=== PATIENT | male | born 1960 | race Caucasian/White ===

== ENCOUNTER 2016-11-27 09:53 | Emergency (ER) | payer BC ==
[~2016-11-27] VITALS: Ht 188 cm; Wt 103.5 kg
[~2016-11-27 09:53] MED LIST: WARF10TA PO; WARF5TAB90 PO
[2016-11-27 09:54] VITALS: TEMP 36.5; Ht 188 cm; Wt 103.5 kg
[2016-11-27] MEDS ORDERED: LIDOCAINE/EPINEPHRINE 1% 20 ML VIAL ONE (10:08)
--- NOTE | 2016-11-27 10:40 | EMERGENCY ROOM VISIT NOTE ---
History Report prepared by Annikaibjerome: Dinora Bob Under the Supervision of: Dr. Son Ricks M.D. First contact with patient: 10:03 Chief Complaint: LACERATION/CUT (SUT/DERMABOND) Stated Complaint: LEFT KNEE LACERATION Nursing Triage Summary: Patient states he was walking the dos and walked on a branch under the snow he didn't see, injured left knee in fall. Denies hitting head. Open wound on knee from tree branch. Takes Coumadin daily. History of Present Illness The patient is a 56 year old male who presents to the Emergency Room with complaints of persistent left knee pain starting a few minutes ago. The patient was walking his dogs when he tripped on a branch and fell down. He reports hitting his knee. He has a laceration on his left knee. He denies hitting his head or loss of consciousness. He denies any other injuries. The patient denies chest pain, shortness of breath, or any other complaints. He is on Coumadin. Source of History: patient Onset: a few minutes ago Position: knee (left) Quality: other (laceration) Timing: other (persistent) Associated Symptoms: No LOC, No SOB, No chest pain Review of Systems See HPI for pertinent positives & negatives. A total of 10 systems reviewed and were otherwise negative. Past Medical & Surgical Medical Problems: (1) H/O blood clots (2) Hypertension Family History Heart disease Hypertension Social History Smoking Status: Former Smoker Alcohol Use: occasionally Marital Status: single Occupation Status: employed Current/Historical Medications Scheduled Warfarin Sodium (Coumadin), 5 MG PO 2XWK Warfarin Sodium (Coumadin), 10 MG PO 5XWK Allergies Coded Allergies: No Known Allergies (Unverified , 11/27/16) Physical Exam Vital Signs Date Time Temp Pulse Resp B/P Pulse Ox O2 Delivery O2 Flow Rate FiO2 11/27/16 11:26 75 16 180/104 96 Room Air 11/27/16 09:54 36.5 80 17 171/108 97 Room Air Physical Exam GENERAL: Patient is a healthy-appearing well-nourished HEAD: Normocephalic atraumatic EYES: Ocular movements intact pupils equal and react to light OROPHARYNX mucous membranes are moist no exudates present no erythema or edema present NECK: Supple no nuchal rigidity CHEST: Good equal expansion LUNGS: Clear and equal to auscultation CARDIAC: Normal S1 and S2 ABDOMEN: Soft nontender no guarding BACK: No CVA tenderness EXTREMITIES: Stellate laceration approximately 6 cm total in length, it is liner. There are no foreign objects. Normal muscle strength in all groups no clubbing cyanosis or edema NEURO: Patient is following commands is answering questions appropriately. Alert and oriented x3 Cranial Nerves 2-12 grossly intact Medical Decision & Procedures Procedure Location: Inferior to the knee Total length: 6 cm Complexity: Simple, linear Verbal consent was obtained after the risks and benefits were explained, including but not limited to bleeding, scarring, infection, pain, and bone/joint /nerve damage. At this time, the risks of the procedure are less than the risks of NOT performing the procedure. A time out was taken and the correct patient and site identified. The skin was prepped with betadine. The target area was anesthetized with 4 ml of 1% lidocaine without epinephrine. Copious irrigation was performed using 500 cc of normal saline. The skin was re-prepped with betadine and a sterile field set. The wound was explored for foreign bodies and none found. Examination revealed no injury to deep structures such as tendons, bone, or significant blood vessels. Debridement was not performed. The wound edges were approximated using 9, 4-0 simple interrupted nylon sutures. Hemostasis and excellent approximation was achieved. Antibacterial ointment and a sterile dressing applied. Detailed wound care instructions and signs and symptoms of infection reviewed with the patient. No complications and the patient tolerated the procedure well. ED Course 1003: Past medical records reviewed. The patient was evaluated in room B03B. A complete history and physical examination was performed. 1115: Upon reexamination the patient is resting comfortably. I discussed results and treatment plan with the patient. He verbalizes agreement and understanding. The patient is ready for discharge. Medical Decision Differential diagnosis: Etiologies such as fracture, dislocation, intra-abdominal, pneumothorax, intrathoracic , intracranial, neurologic, as well as other traumatic pathologies were entertained. This is a 56-year-old male who presents emergency department complaining of laceration. This was repaired by student nurse practitioner as well as myself as above. The patient's tetanus is up-to-date. I feel he is well enough to be discharged home for follow-up with his primary care physician. Patient was in agreement with the treatment plan. Impression Primary Impression: Laceration Scribe Attestation The scribe's documentation has been prepared under my direction and personally reviewed by me in its entirety. I confirm that the note above accurately reflects all work, treatment, procedures, and medical decision making performed by me. Departure Information Dispostion Home / Self-Care Referrals Oliverio White D.O. (PCP) Forms HOME CARE DOCUMENTATION FORM, IMPORTANT VISIT INFORMATION Patient Instructions ED Laceration Ext Sutr Stap Tape, ED Scar Tips to Minimize, My [facility] Additional Instructions Sutures out in 10-14 days You have been examined and treated today on an emergency basis only. This is not a substitute for, or an effort to provide, complete comprehensive medical care. It is impossible to recognize and treat all injuries or illnesses in a single emergency department visit. It is therefore important that you follow up closely with Dr White. Call as soon as possible for an appointment. Thank you for your time and consideration. I look forward to speaking with you again soon. Please don't hesitate to call us if you have any questions.
[2016-11-27] MEDS ORDERED: LIDOCAINE/EPINEPHRINE 1% 20 ML VIAL INFIL STA (10:44)
[2016-11-27 11:26] VITALS: BP 180/104; PULSE 75; O2SAT 96
== END 2016-11-27 11:28 | disposition home or self-care (01) ==
LOC: C.EDB 09:55
DX: S81.012A Laceration without foreign body, left knee, initial encounter (principal); W18.09XA Striking against other object with subsequent fall, initial encounter; I10 Essential (primary) hypertension; Z82.49 Family history of ischemic heart disease and other diseases of the circulatory system; Z87.891 Personal history of nicotine dependence; Z79.01 Long term (current) use of anticoagulants

== ENCOUNTER 2025-04-24 15:52 | Inpatient (IN) ==
[2025-04-24] MEDS: OPTIRAY 320 125ml IV ONE (16:08)
--- NOTE | 2025-04-24 16:25 | Emergency Department Note ---
Impression & Plan Stroke-like symptoms, Hypertension ED Provider Note ED Provider Note NAME: LD ESPINO AGE:65 SEX: Male : 1960 ARRIVES VIA: private vehicle INFORMANT: Patient, friend ED PROVIDER(s): Ava Roberts DO CHIEF COMPLAINT: Strokelike symptoms HPI: This is a 65-year-old male presents emergency department due to concern for right arm weakness and difficulty speaking. Patient states symptoms began at noon. Patient lives at home alone. Friend who also presents to bedside states that he called him at around 315 stating he was not feeling well and the friend came over to pick him up and bring him here. Patient with a prior history of glioblastoma status post resection 3 years ago. Patient follows down at [facility] currently. He states that he did have another surgery last fall and they continue to monitor him with frequent MRIs. Patient denies any use of antiplatelet or anticoagulation medications. Patient states he felt normal this morning when he first woke up, ate and did his normal routine at his house before this started around noon. Patient states he noticed it when he went to use his right arm to try and move a sliding glass door. He states he felt like he did not have normal control or strength in his arm. Patient states he then realized that his speech was off when he called his friend. He states he knows what he wants to say but has difficulty getting it out. Patient denies any difficulty walking or leg weakness. He denies any sense of headaches or dizziness. He states no recent illness or medication changes. PAST MEDICAL HISTORY:See Below PAST SURGICAL HISTORY:See Below FAMILY HISTORY:See Below SOCIAL HISTORY:See Below HOME MEDICATIONS:See Below ALLERGIES:See Below VITALS:See Below PHYSICAL EXAMINATION: GENERAL: alert, well appearing, well nourished, no distress, non-toxic EYE EXAM: normal conjunctiva, PERRL and EOM's grossly intact OROPHARYNX: no exudate, no erythema, lips, buccal mucosa, and tongue normal and mucous membranes are moist NECK: supple, no nuchal rigidity, no adenopathy, non-tender LUNGS: Clear to auscultation. Normal chest wall mechanics, no w/r/r HEART: no murmurs, S1 normal and S2 normal ABDOMEN: abdomen soft, non-tender, normo-active bowel sounds, no masses, no rebound or guarding. BACK: Back is symmetrical on inspection and there is no deformity, no midline tenderness, no CVA tenderness. SKIN: no rashes, petechiae, orbruising UPPER EXTREMITIES: upper extremities are grossly normal. FROM, nml pulses b/l. LOWER EXTREMITIES: No pitting edema. FROM, nml pulses b/l. NEURO EXAM: Normal sensorium, cranial nerves II-XII grossly intact, slurred speech, no facial droop,nogross weakness of arms, no gross weakness of legs. Gross sensation intact. Right arm ataxia and increased fatiguability. NIHSS 3. Vital Signs: reviewed and remarkable Differential Diagnosis: ischemic Stroke, hemorrhagic stroke, bells palsy, mass, neoplasm, migraine headache, seizure, subarachnoid hemorrhage, TIA, transient global amnesia, medication ADR, as well as others were considered MEDICAL DECISION MAKING: This is a 65-year-old male presents emergency department with slurred speech and right arm weakness. Patient made a stroke alert from triage due to his symptoms and sent urgently for CT. I did speak with a friend who presented to bedside while patient was in CT who picked him up and brought him here and noted slurred speech and difficulty using his right arm. Friend also said he seemed to have slight problem yesterday when they were golfing placing his ball on the aminata with his right hand. Upon arrival to the room labs drawn and sent, additional IV established, EKG and chest ray performed and patient monitored on telemetry. He was started on gentle IV fluid hydration while awaiting callback from neurology. Patient given multiple doses of IV labetalol due to elevated blood pressure reading while here additionally. Case discussed with on-call [place] telestroke neurologist, Dr. Rosas. Given low NIH score, prior history of glioblastoma with surgery, and by the time of their return call patient beyond the 4 and half hour window, felt patient not a candidate for TNK. Based on symptoms patient unlikely to have LVO and would not be a candidate for interventional procedure per Dr. Rosas. I did discuss the case with the reading radiologist additionally who felt the changes noted in her CT reads are likely related to the patient's prior glioblastoma surgery. Patient initially discussed with Dr. Marion of [facility] team who will hold off on formal admission until MRI brain results. After MRI brain performed patient return the emergency department I spoke with Dr. Marion again who felt patient needed further neurosurgical evaluation. We did request neurosurgery at [facility] and were connected with neurology who reviewed all the scans and stated no need for urgent operative intervention. Caldwell findings on MRI likely secondary to recurrence of his tumor and the patient should be started on Decadron and Keppra and close follow-up arranged with his medical team at [facility]. With assistance from the patient we were able to track down a covering PA-C with his medical team at [facility]. I did read her the MRI results, we discussed the presentation of today, discussed evaluation here, as well as the recommendation of the prior neurologist at [facility]. She felt these were reasonable recommendations and that the MRI today would be better compared to an MRI following his repeat surgery from last fall as it was previously compared to an MRI from last May prior to the surgery. She agrees with restarting Decadron and Keppra. She states he does have an appointment with them this and they will follow him up as an outpatient should he remain stable. She does feel observation overnight and improved blood pressure control is important additionally. This was also recommended by the neurologist I spoke with. Case discussed them with Dr. Nolasco, [facility] neurosurgery physician for further inpatient evaluation and management. Patient updated at bedside multiple times and reexamined. He had no other new or evolving symptoms or new complaints. He was given additional IV hydralazine for blood pressure control after the IV labetalol doses. Consultation(s): 1630: Discussed with Dr. Rosas. States not a TNK candidate or a candidate for other intervention. Recommends initiation of low-dose aspirin and Plavix 300 mg and admission for further stroke evaluation. 1638: Discussed with radiology, Dr. Medrano. States changes likely related to prior glioblastoma and surgery. 171: Discussed with Dr. Shetty. He will order MRI brain stat. If reassuring, will admit here. 1919: Discussed with Dr. Shetty again. Recommends neurosurgical evaluation. 2038: [place] [facility] [place]commends 1 g Keppra IV, 10 mg of Decadron IV, and admission for monitoring and improved blood pressure control. Recommend systolic blood pressure should be 130s and 140s. Recommends patient discontinue driving. She states an EEG could be obtained if possible. She states patient can be discharged on Decadron 4 mg 3 times daily. Recommends additional discussion with team at [facility] regarding Keppra dosing and close follow-up. 2109: Discussed with Radha Anaya PA-C at [facility]. Agrees with 10 mg of IV Decadron and 1 g of IV Keppra at this time. Would continue the patient on 4 mg of Decadron every 6 while admitted and then discharge him home on either 4 mg twice daily or daily depending on his symptoms. Will transition the patient to Keppra 500 mg twice daily at time of discharge as well. If possible could consider obtaining an EEG. They are happy to see the patient in follow-up this week as an outpatient. ER Treatment Provided: See below 1640: Discussed with patient again, updated on plan/recommendations. 1653: Patient states he no longer takes any Keppra. He is not currently take any blood pressure medications although notes his blood pressures when he has been checking them at home have been elevated recently. Diagnostics Interpreted By Me: -ECG: Normal sinus at 67, normal axis, normal intervals, no acute ST/T wave changes -Cardiac Monitoring: An order was placed for continuous cardiac monitoring. The monitor shows a rate of 65 with normal sinus rhythm. -Laboratory studies: As stated above and show below. -Imaging studies: Triage Nursing Note Reviewed Prior/Outside Records Reviewed -prior discharge summary from [facility] from July 2022 reviewed Critical Care: Critical care of 78 min performed to assess and manage high likelihood of life-threatening strokelike symptoms and hypertension, involving labs and imaging performed with assessment to evaluate strokelike symptoms and hypertension diagnosis with frequent reassessment. This time includes bedside time, treatment discussions with patient/family/consultants, documentation time and excludes procedure time. Past Med/Surg History Problem List (Updated 04/24/25 @ 16:44 by Ava Roberts DO) Stroke-like symptoms (Acute) Hypertension (Acute) Neurological deficit present (Acute) Brain mass (Acute) Encounter for pre-operative examination Hypertension (Chronic) Medical History Hx of blood clots IN KNEE AREA AND WAS ON THINNER AND NO LONGER NEEDED Hypertension Surgical History (Updated 07/04/22 @ 16:52 by Rosy Garcia PA-C) H/O inguinal hernia repair Hx of colonoscopy Family History (Updated 07/04/22 @ 16:52 by Rosy Garcia PA-C) Mother Cancer lung Kidney disease Father Coronary heart disease Heart disease Hypertension Social History (Updated 07/04/22 @ 17:31 by Rosy Garcia PA-C) Smoking Status: Never smoker Second Hand Exposure: No; Do You Dip or Chew Tobacco: No; Hx Alcohol Use: Yes Hx Substance Use: Yes Non-Prescribed Medications: Marijuana Preferred Language: Northern Irish Communication Ability: Effective Food Sanitarian Required: No Beliefs That Will Affect Care: None Current Living Situation: Alone current occupational status: employed Feels Safe at Home: Yes Assistive Devices: Glasses Allergies Allergies Allergy/AdvReac Type Severity Reaction Status Date / Time No Known Allergies Allergy Verified 04/24/25 16:21 Home Meds Home Medications Medication Instructions Recorded Confirmed ibuprofen 200 mg tablet 400 mg PO ONCE 04/24/25 04/24/25 Results & Data (ED) Vital Signs Vital Signs - 24 hr 04/24/25 15:53 04/24/25 16:22 04/24/25 16:26 Temperature 36.8 C Temperature Source Temporal Artery Scan Pulse Rate 69 73 Pulse Rate [Apical] 67 Respiratory Rate 18 14 Respiratory Effort / Characteristics Respiratory Depth Respiratory Pattern Blood Pressure 127/100 Blood Pressure [Right Arm] 195/107 H Blood Pressure Mean 109 Blood Pressure Mean [Right Arm] 136 Pulse Oximetry 97 97 Oxygen Delivery Method Room Air Room Air Sepsis Recent Fever Within 48 Hours No Sepsis New/Unexplained Change in Mental Status N/A Sepsis Action Taken by Nursing No Action Required 04/24/25 16:30 04/24/25 16:44 04/24/25 16:45 Temperature Temperature Source Pulse Rate 67 62 Pulse Rate [Apical] 62 Respiratory Rate 16 Respiratory Effort / Characteristics Respiratory Depth Respiratory Pattern Blood Pressure 213/112 H 182/91 H Blood Pressure [Right Arm] 186/116 H Blood Pressure Mean Blood Pressure Mean [Right Arm] 139 Pulse Oximetry 99 Oxygen Delivery Method Room Air Sepsis Recent Fever Within 48 Hours Sepsis New/Unexplained Change in Mental Status Sepsis Action Taken by Nursing 04/24/25 16:50 04/24/25 17:05 04/24/25 17:06 Temperature Temperature Source Pulse Rate 63 57 L Pulse Rate [Apical] 57 L Respiratory Rate 15 Respiratory Effort / Characteristics Respiratory Depth Respiratory Pattern Blood Pressure 182/91 H 186/101 H Blood Pressure [Right Arm] 186/101 H Blood Pressure Mean Blood Pressure Mean [Right Arm] 129 Pulse Oximetry 98 Oxygen Delivery Method Room Air Sepsis Recent Fever Within 48 Hours Sepsis New/Unexplained Change in Mental Status Sepsis Action Taken by Nursing 04/24/25 17:15 04/24/25 18:10 04/24/25 19:57 Temperature Temperature Source Pulse Rate Pulse Rate [Apical] 61 58 L 64 Respiratory Rate 16 17 18 Respiratory Effort / Characteristics Respiratory Depth Respiratory Pattern Blood Pressure Blood Pressure [Right Arm] 182/104 H 192/111 H 188/112 H Blood Pressure Mean Blood Pressure Mean [Right Arm] 130 138 137 Pulse Oximetry 98 98 20 L Oxygen Delivery Method Room Air Room Air Sepsis Recent Fever Within 48 Hours Sepsis New/Unexplained Change in Mental Status Sepsis Action Taken by Nursing 04/24/25 21:00 04/24/25 22:00 04/24/25 23:54 Temperature Temperature Source Pulse Rate Pulse Rate [Apical] 61 71 60 Respiratory Rate 20 18 17 Respiratory Effort / Characteristics Non-Labored Spontaneous Respiratory Depth Normal Respiratory Pattern Regular Blood Pressure Blood Pressure [Right Arm] 159/93 H 167/105 H 186/100 H Blood Pressure Mean Blood Pressure Mean [Right Arm] 115 125 128 Pulse Oximetry 96 95 98 Oxygen Delivery Method Room Air Room Air Room Air Sepsis Recent Fever Within 48 Hours Sepsis New/Unexplained Change in Mental Status Sepsis Action Taken by Nursing Laboratory Data 04/24/25 16:12 04/24/25 22:23 Lab Results 04/24/25 04/24/25 04/24/25 Range/Units 16:11 16:12 16:14 WBC 5.63 (4.8-10.8) K/ul RBC 3.69 L (4.70-6.10) M/uL Hgb 11.7 L (14.0-18.0) g/dl Hct 34.1 L (42.0-52.0) % MCV 92.4 (80.0-100.0) fL MCH 31.7 (25.0-34.0) pg MCHC 34.3 (32.0-36.0) g/dL RDW Std Deviation 42.1 (36.4-46.3) fL RDW Coeff of Kristin 12.3 (11.5-14.5) % Plt Count 202 (130-400) K/uL MPV 9.5 (9.4-12.4) fL Immature Gran % (Auto) 0.4 % Neut % (Auto) 73.9 % Lymph % (Auto) 14.0 % [place] % (Auto) 11.0 % Eos % (Auto) 0.2 % Baso % (Auto) 0.5 % Reticulocyte % (Auto) (0.50-2.00) % Neut # (Auto) 4.16 (1.40-6.50) K/uL Lymph # (Auto) 0.79 L (1.20-3.40) K/uL [place] # (Auto) 0.62 H (0.11-0.59) K/uL Eos # (Auto) 0.01 (0.00-0.50) K/uL Baso # (Auto) 0.03 (0.00-0.20) K/uL Reticulocyte # (0.020-0.100) 10^6/uL Immature Gran # (Auto) 0.02 (0.01-0.20) K/uL PT 10.9 (9.0-12.0) Seconds INR 1.0 (0.9-1.1) APTT 31 (21-31) Seconds PTT Ratio 1.2 Sodium 128 L (136-145) mmol/L Potassium 3.6 (3.5-5.1) mmol/L Chloride 96 L (98-107) mmol/L Carbon Dioxide 24 (21-32) mmol/L Anion Gap 8 (3-11) BUN 9 (6-23) mg/dl Creatinine 0.67 (0.6-1.4) mg/dl Est Cr Clr Drug Dosing 124.4 ml/min eGFR 102.34 BUN/Creatinine Ratio 13.4 (10-20) Glucose 108 H (70-99(Fasting)) mg/dl POC Glucose 118 H (70-99) mg/dl Osmolality 279 L (280-300) mOsm/kg Calcium 8.3 L (8.6-10.3) mg/dl Magnesium 1.7 (1.7-2.4) mg/dl Iron (35-175) mcg/dl Transferrin (200-360) mg/dl Ferritin (8-388) ng/ml Total Bilirubin 0.9 (0.2-1.0) mg/dl AST 14 (13-39) U/L ALT 9 (7-52) U/L Alkaline Phosphatase 23 L (34-104) U/L Troponin I High Sens 6.6 (0-20) pg/ml Total Protein 5.8 L (6.0-8.3) gm/dl Albumin 3.7 (3.4-5.0) gm/dl Globulin 2.1 L (2.5-4.0) gm/dl Albumin/Globulin Ratio 1.8 (0.9-2) Vitamin B12 (180-914) pg/ml Folate (>5.38) ng/ml TSH (0.300-4.500) uIu/ml Ethyl Alcohol mg/dL (<10.0) mg/dl Blood Type AB Positive Antibody Screen NEGATIVE 04/24/25 04/24/25 Range/Units 21:48 22:23 WBC (4.8-10.8) K/ul RBC (4.70-6.10) M/uL Hgb (14.0-18.0) g/dl Hct (42.0-52.0) % MCV (80.0-100.0) fL MCH (25.0-34.0) pg MCHC (32.0-36.0) g/dL RDW Std Deviation (36.4-46.3) fL RDW Coeff of Kristin (11.5-14.5) % Plt Count (130-400) K/uL MPV (9.4-12.4) fL Immature Gran % (Auto) % Neut % (Auto) % Lymph % (Auto) % [place] % (Auto) % Eos % (Auto) % Baso % (Auto) % Reticulocyte % (Auto) 2.06 H (0.50-2.00) % Neut # (Auto) (1.40-6.50) K/uL Lymph # (Auto) (1.20-3.40) K/uL [place] # (Auto) (0.11-0.59) K/uL Eos # (Auto) (0.00-0.50) K/uL Baso # (Auto) (0.00-0.20) K/uL Reticulocyte # 0.080 (0.020-0.100) 10^6/uL Immature Gran # (Auto) (0.01-0.20) K/uL PT (9.0-12.0) Seconds INR (0.9-1.1) APTT (21-31) Seconds PTT Ratio Sodium 133 L (136-145) mmol/L Potassium (3.5-5.1) mmol/L Chloride (98-107) mmol/L Carbon Dioxide (21-32) mmol/L Anion Gap (3-11) BUN (6-23) mg/dl Creatinine (0.6-1.4) mg/dl Est Cr Clr Drug Dosing ml/min eGFR BUN/Creatinine Ratio (10-20) Glucose (70-99(Fasting)) mg/dl POC Glucose (70-99) mg/dl Osmolality (280-300) mOsm/kg Calcium (8.6-10.3) mg/dl Magnesium (1.7-2.4) mg/dl Iron 93 (35-175) mcg/dl Transferrin 192 L (200-360) mg/dl Ferritin 178.5 (8-388) ng/ml Total Bilirubin (0.2-1.0) mg/dl AST (13-39) U/L ALT (7-52) U/L Alkaline Phosphatase (34-104) U/L Troponin I High Sens (0-20) pg/ml Total Protein (6.0-8.3) gm/dl Albumin (3.4-5.0) gm/dl Globulin (2.5-4.0) gm/dl Albumin/Globulin Ratio (0.9-2) Vitamin B12 336 (180-914) pg/ml Folate > 22.30 (>5.38) ng/ml TSH 1.330 (0.300-4.500) uIu/ml Ethyl Alcohol mg/dL < 10.0 (<10.0) mg/dl Blood Type Antibody Screen Administered Medications Folic Acid (Folic Acid 1 Mg Tab) 1 mg PO QAM ON LICENSE OF [facility] Stop: 05/24/25 22:54 Last Admin: 04/24/25 23:49 Dose: 1 mg Documented By: DL Magnesium Sulfate/Dextrose (Magnesium Sulfate / D5w) 1 gm in 100 mls @ 50 mls/hr IV Q2H ON LICENSE OF [facility] Stop: 04/25/25 01:44 Last Admin: 04/24/25 21:55 Dose: 50 mls/hr Documented By: Multivitamins (Multivitamin Tab) 1 tab PO QAM ON LICENSE OF [facility] Stop: 05/24/25 22:54 Last Admin: 04/24/25 23:49 Dose: 1 tab Documented By: JB Discontinued Medications Aspirin (Aspirin 81 Mg Ectab) 81 mg PO NOW STA Stop: 04/24/25 16:43 Last Admin: 04/24/25 16:50 Dose: 81 mg Documented By: REKHA Dexamethasone Sodium Phosphate (DexamethasonePf 10 Mg/Ml Vial) 10 mg IV NOW ONE Stop: 04/24/25 20:08 Last Admin: 04/24/25 20:14 Dose: 10 mg Documented By: MAXIM Gabapentin (Gabapentin 600 Mg Tab) 1,200 mg PO NOW ONE Stop: 04/24/25 22:55 Last Admin: 04/24/25 23:49 Dose: 1,200 mg Documented By: JB Gadobutrol (Gadobutrol 65ml Vial) 8.5 ml IV ONCE ONE Stop: 04/24/25 17:53 Last Admin: 04/24/25 17:53 Dose: 8.5 ml Documented By: LUCIANA Hydralazine HCl (Hydralazine Hcl 20 Mg/Ml Vial) 10 mg IV NOW STA Stop: 04/24/25 19:42 Last Admin: 04/24/25 19:56 Dose: 10 mg Documented By: MAXIM Sodium Chloride (Nss) 1,000 mls @ 125 mls/hr IV .Q8H RADHA Stop: 04/27/25 15:59 Last Infusion: 04/24/25 22:45 Dose: Infused Documented By: Infusion: 04/24/25 17:38 Dose: 0 mls/hr Documented By: Admin: 04/24/25 16:28 Dose: 125 mls/hr Documented By: REKHA Sodium Chloride (Nss) 1,000 mls @ 60 mls/hr IV .[id number] ONE Stop: 04/25/25 14:16 Last Admin: 04/24/25 21:53 Dose: Not Given Documented By: MAXIM Thiamine HCl 100 mg/ Syringe 10 mls @ 2 mls/min IV NOW STA Stop: 04/24/25 21:56 Last Admin: 04/24/25 22:22 Dose: 2 mls/min Documented By: MAXIM Ioversol (Optiray 320 125ml) 119 ml IV ONCE ONE Stop: 04/24/25 16:09 Last Admin: 04/24/25 16:08 Dose: 119 ml Documented By: HANY Labetalol HCl (Labetalol Hcl Iv 5 Mg/Ml 20ml) 5 mg IV NOW STA Stop: 04/24/25 16:28 Last Admin: 04/24/25 16:30 Dose: 5 mg Documented By: REKHA Labetalol HCl (Labetalol Hcl Iv 5 Mg/Ml 20ml) 10 mg IV NOW STA Stop: 04/24/25 16:42 Last Admin: 04/24/25 16:50 Dose: 10 mg Documented By: REKHA Levetiracetam (Levetiracetam 500 Mg/5 Ml Vial) 1,000 mg IV NOW STA Stop: 04/24/25 20:08 Last Admin: 04/24/25 20:14 Dose: 1,000 mg Documented By: MAXIM Imaging Data Radiologist's Impression: Chest X-Ray 04/24/25 15:59 Chest radiograph, one view History: stroke. Comparison: July 04, 2022. Findings: Calcified atherosclerotic changes of the thoracic aorta. Cardiomediastinal silhouette is within normal limits. Pulmonary vasculature is within normal limits. Lungs are clear. Impression: Stable exam. No acute process. Electronically signed by Casey Rose 04-24-2025 6:[address] 04/24/25 15:59 EXAM: CT Head Without Intravenous Contrast INDICATION: Right facial droop. TECHNIQUE: Axial computed tomography images of the head/brain without intravenous contrast. Sagittal and/or coronal reformats are provided. Sagittal and coronal reformatted images were created and reviewed. This CT exam was performed using one or more of the following dose reduction techniques: automated exposure control, adjustment of the mA and/or kV according to patient size, and/or use of iterative reconstruction technique. COMPARISON: MRI 05/25/2024 FINDINGS: Limitations: None. Brain and extra-axial spaces: There is a moderate to large area of left posterior frontal parietal edema. Small foci of postoperative calcification noted in the left posterior parietal lobe. No regional mass effect. No shift. No hemorrhage. Bones/joints: Left parietal craniotomy change. No acute osseous abnormality. Soft tissues: No significant abnormality noted. Vasculature: No acute abnormality noted. Sinuses: Visualized portion of the left maxillary sinus is opacified. Mastoid air cells: No mastoid effusion. Orbits: No significant abnormality noted. IMPRESSION: Left posterior frontal parietal vasogenic edema without regional mass effect, shift or hemorrhage. Correlate with surgical history. ACT 112: N/A Electronically signed by Jose Zehra 04-24-2025 4:25 PM Head CTA 04/24/25 15:59 EXAM: CT Angiography Head and Neck With Intravenous Contrast INDICATION: Right facial droop. TECHNIQUE: [place] [facility] [place]/head and neck CT angiography protocol performed with intravenous contrast. Sagittal and coronal reformatted images were created and reviewed. This CT exam was performed using one or more of the following dose reduction techniques: automated exposure control, adjustment of the mA and/or kV according to patient size, and/or use of iterative reconstruction technique. MIP reconstructed images were created and reviewed. CONTRAST: 119ml of Optiray 320 was administered intravenously. COMPARISON: None. FINDINGS: HEAD: Right anterior cerebral artery: No abnormality noted. No occlusion or significant stenosis. Anterior communicating artery is present. No aneurysm. Right middle cerebral artery: No abnormality noted. No occlusion or significant stenosis. No aneurysm. Right posterior cerebral artery: No abnormality noted. No occlusion or significant stenosis. No aneurysm. Right intracranial internal carotid artery: Mild calcific plaque noted. No significant stenosis. No dissection or occlusion. Right intracranial vertebral artery: No abnormality noted. No significant stenosis. No dissection or occlusion. Left anterior cerebral artery: No abnormality noted. No occlusion or significant stenosis. No aneurysm. Left middle cerebral artery: M1 patent. There is diminished flow in the anterior left M2 branch without occlusion. No aneurysm. Left posterior cerebral artery: No abnormality noted. No occlusion or significant stenosis. No aneurysm. Left intracranial internal carotid artery: Mild calcific plaque noted. No significant stenosis. No dissection or occlusion. Left intracranial vertebral artery: Small focus of calcific plaque noted. No significant stenosis. No dissection or occlusion. Basilar artery: No abnormality noted. No occlusion or significant stenosis. No aneurysm. Other vasculature: No vascular malformation. Sinuses: There is chronic opacification of the left maxillary sinus. There is mild mucosal thickening left sphenoid sinus. NECK: Right common carotid artery: No abnormality noted. No significant stenosis. No dissection or occlusion. Right extracranial internal carotid artery: Mild proximal calcific plaque. No significant stenosis. No dissection or occlusion. Right external carotid artery: No abnormality noted. No occlusion. Right extracranial vertebral artery: No abnormality noted. No significant stenosis. No dissection or occlusion. Left common carotid artery: No abnormality noted. No significant stenosis. No dissection or occlusion. Left extracranial internal carotid artery: Mild proximal calcific plaque noted. No significant stenosis. No dissection or occlusion. Left external carotid artery: No abnormality noted. No occlusion. Left extracranial vertebral artery: No abnormality noted. No significant stenosis. No dissection or occlusion. Thyroid: 9 mm diameter and calcified left thyroid nodule. No further assessment required. Lung apices: No significant abnormality noted. HEAD and NECK: Bones/joints: There is moderate edema in the left posterior frontal parietal lobe lobes. There is mild heterogeneous asymmetric enhancement of the left parietal cortex subjacent to the parietal craniotomy. Soft tissues: No abnormality noted. CAROTID STENOSIS REFERENCE USING NASCET CRITERIA: % ICA stenosis = (1 - narrowest ICA diameter/diameter of distal cervical ICA) x 100. Mild - <50% stenosis. Moderate - 50-69% stenosis. Severe - 70-94% stenosis. Near occlusion - 95-99% stenosis. Occluded - 100% stenosis. IMPRESSION: 1. There is diminished flow in the anterior left M2 branch without occlusion. 2. No large vessel occlusion or dissection in the head or neck. 3. Left posterior frontal parietal vasogenic edema with heterogeneous underlying gyral enhancement. Cerebritis and developing abscess considered. Residual mass if there has been a recent resection is also considered. ACT 112: N/A Electronically signed by Zehra Garcia 04-24-2025 4:32 PM Neck CTA 04/24/25 15:59 EXAM: CT Angiography Head and Neck With Intravenous Contrast INDICATION: Right facial droop. TECHNIQUE: [place] [facility] [place]/head and neck CT angiography protocol performed with intravenous contrast. Sagittal and coronal reformatted images were created and reviewed. This CT exam was performed using one or more of the following dose reduction techniques: automated exposure control, adjustment of the mA and/or kV according to patient size, and/or use of iterative reconstruction technique. MIP reconstructed images were created and reviewed. CONTRAST: 119ml of Optiray 320 was administered intravenously. COMPARISON: None. FINDINGS: HEAD: Right anterior cerebral artery: No abnormality noted. No occlusion or significant stenosis. Anterior communicating artery is present. No aneurysm. Right middle cerebral artery: No abnormality noted. No occlusion or significant stenosis. No aneurysm. Right posterior cerebral artery: No abnormality noted. No occlusion or significant stenosis. No aneurysm. Right intracranial internal carotid artery: Mild calcific plaque noted. No significant stenosis. No dissection or occlusion. Right intracranial vertebral artery: No abnormality noted. No significant stenosis. No dissection or occlusion. Left anterior cerebral artery: No abnormality noted. No occlusion or significant stenosis. No aneurysm. Left middle cerebral artery: M1 patent. There is diminished flow in the anterior left M2 branch without occlusion. No aneurysm. Left posterior cerebral artery: No abnormality noted. No occlusion or significant stenosis. No aneurysm. Left intracranial internal carotid artery: Mild calcific plaque noted. No significant stenosis. No dissection or occlusion. Left intracranial vertebral artery: Small focus of calcific plaque noted. No significant stenosis. No dissection or occlusion. Basilar artery: No abnormality noted. No occlusion or significant stenosis. No aneurysm. Other vasculature: No vascular malformation. Sinuses: There is chronic opacification of the left maxillary sinus. There is mild mucosal thickening left sphenoid sinus. NECK: Right common carotid artery: No abnormality noted. No significant stenosis. No dissection or occlusion. Right extracranial internal carotid artery: Mild proximal calcific plaque. No significant stenosis. No dissection or occlusion. Right external carotid artery: No abnormality noted. No occlusion. Right extracranial vertebral artery: No abnormality noted. No significant stenosis. No dissection or occlusion. Left common carotid artery: No abnormality noted. No significant stenosis. No dissection or occlusion. Left extracranial internal carotid artery: Mild proximal calcific plaque noted. No significant stenosis. No dissection or occlusion. Left external carotid artery: No abnormality noted. No occlusion. Left extracranial vertebral artery: No abnormality noted. No significant stenosis. No dissection or occlusion. Thyroid: 9 mm diameter and calcified left thyroid nodule. No further assessment required. Lung apices: No significant abnormality noted. HEAD and NECK: Bones/joints: There is moderate edema in the left posterior frontal parietal lobe lobes. There is mild heterogeneous asymmetric enhancement of the left parietal cortex subjacent to the parietal craniotomy. Soft tissues: No abnormality noted. CAROTID STENOSIS REFERENCE USING NASCET CRITERIA: % ICA stenosis = (1 - narrowest ICA diameter/diameter of distal cervical ICA) x 100. Mild - <50% stenosis. Moderate - 50-69% stenosis. Severe - 70-94% stenosis. Near occlusion - 95-99% stenosis. Occluded - 100% stenosis. IMPRESSION: 1. There is diminished flow in the anterior left M2 branch without occlusion. 2. No large vessel occlusion or dissection in the head or neck. 3. Left posterior frontal parietal vasogenic edema with heterogeneous underlying gyral enhancement. Cerebritis and developing abscess considered. Residual mass if there has been a recent resection is also considered. ACT 112: N/A Electronically signed by Zehra Garcia 04-24-2025 4:32 PM Brain MRI 04/24/25 17:10 Exam: MR brain without and with intravenous contrast. History: Difficulty speaking. Right arm weakness. Comparison: Correlation CTA head and neck and noncontrast head CT earlier same day and comparison to prior MR May 25, 2024. Technique: Routine multiplanar multisequence MR images of the brain without and with intravenous contrast were obtained and reviewed. Findings: Diffusion weighted series demonstrates no restricted diffusion. Brain parenchyma demonstrates postintervention changes of the left parietal lobe with serpiginous elements of increased T1 and susceptibility at the level of the surgical bed. This may represent petechial hemorrhage and or laminar necrosis. No discrete mass effect. Overlying craniotomy changes are noted. Remaining brain parenchyma demonstrates normal signal intensity for patient's age. Normal ventricles and sulci for patient's age. Major vascular flow voids are present. Basal cisterns are patent. Empty sella is noted. This is of unlikely clinical significance. No midline shift. Postcontrast images demonstrate significantly increased poorly defined somewhat serpiginous enhancement of the left parietal lobe at the above-described intervention when compared to prior study. No additional abnormal enhancement is noted. Intraorbital soft tissues are within normal limits. Left parietal craniotomy changes appear to be uncomplicated. Impression: Increased region of serpiginous what appears to be cortical enhancement of the left parietal lobe when compared to prior exam. Elements of petechial hemorrhage at this level not excluded. Associated increased adjacent white matter edema. Findings worrisome for neoplastic disease. Edematous changes may represent a neoplastic infiltrative process. Infectious or inflammatory processes cannot entirely be excluded in the appropriate clinical setting. Please see above for details. Electronically signed by Casey Rose 04-24-2025 7:15 PM Discharge Plan Visit Data Chief Complaint: TIA Symptoms Stated Complaint: TIA SYMPTOMS ED Provider: Ava Roberts Discharge Problem: Stroke-like symptoms, Hypertension Patient Disposition: Being Evaluated by Hospitalist Condition: Fair Forms Stand Alone Forms: My [facility] Prescriptions Prescriptions: No Action ibuprofen 200 mg Tablet 400 mg PO ONCE Referrals Referrals: PCP,NO [Primary Care Provider] -
[2025-04-24 16:28] LABS: Basophils # (auto) 0.03 K/uL (0.00-0.20); Basophils % (auto) 0.5 %; Eosinophils # (auto) 0.01 K/uL (0.00-0.50); Eosinophils % (auto) 0.2 %; Hematocrit (blood only) 34.1 % (42.0-52.0); Hemoglobin 11.7 g/dl (14.0-18.0); Immature Granulocytes # (auto) 0.02 K/uL (0.01-0.20); Immature Granulocytes % (auto) 0.4 %; Lymphocytes # (auto) 0.79 K/uL (1.20-3.40); Mean Corpuscular Hemoglobin 31.7 pg (25.0-34.0); Mean Corpuscular Hgb Conc 34.3 g/dL (32.0-36.0); Mean Corpuscular Volume 92.4 fL (80.0-100.0); Mean Platelet Volume 9.5 fL (9.4-12.4); Monocytes # (auto) 0.62 K/uL (0.11-0.59); Neutrophils # (auto) 4.16 K/uL (1.40-6.50); Neutrophils % (auto) 73.9 %; Platelet Count 202 K/uL (130-400); RDW Coefficient of Variation 12.3 % (11.5-14.5); RDW Standard Deviation 42.1 fL (36.4-46.3); Red Blood Count 3.69 M/uL (4.70-6.10); White Blood Count 5.63 K/ul (4.8-10.8)
[2025-04-24] MEDS: SODIUM CHLORIDE 0.9% 1,000 ML IV SCH (16:28)
[2025-04-24] MEDS: LABETALOL HCL IV 5 MG/ML 20ML IV STA ×2 (16:30→16:50)
--- NOTE | 2025-04-24 16:38 | CT Scan Report ---
EXAM: CT Angiography Head and Neck With Intravenous Contrast INDICATION: Right facial droop. TECHNIQUE: [place] [facility] [place]/head and neck CT angiography protocol performed with intravenous contrast. Sagittal and coronal reformatted images were created and reviewed. This CT exam was performed using one or more of the following dose reduction techniques: automated exposure control, adjustment of the mA and/or kV according to patient size, and/or use of iterative reconstruction technique. MIP reconstructed images were created and reviewed. CONTRAST: 119ml of Optiray 320 was administered intravenously. COMPARISON: None. FINDINGS: HEAD: Right anterior cerebral artery: No abnormality noted. No occlusion or significant stenosis. Anterior communicating artery is present. No aneurysm. Right middle cerebral artery: No abnormality noted. No occlusion or significant stenosis. No aneurysm. Right posterior cerebral artery: No abnormality noted. No occlusion or significant stenosis. No aneurysm. Right intracranial internal carotid artery: Mild calcific plaque noted. No significant stenosis. No dissection or occlusion. Right intracranial vertebral artery: No abnormality noted. No significant stenosis. No dissection or occlusion. Left anterior cerebral artery: No abnormality noted. No occlusion or significant stenosis. No aneurysm. Left middle cerebral artery: M1 patent. There is diminished flow in the anterior left M2 branch without occlusion. No aneurysm. Left posterior cerebral artery: No abnormality noted. No occlusion or significant stenosis. No aneurysm. Left intracranial internal carotid artery: Mild calcific plaque noted. No significant stenosis. No dissection or occlusion. Left intracranial vertebral artery: Small focus of calcific plaque noted. No significant stenosis. No dissection or occlusion. Basilar artery: No abnormality noted. No occlusion or significant stenosis. No aneurysm. Other vasculature: No vascular malformation. Sinuses: There is chronic opacification of the left maxillary sinus. There is mild mucosal thickening left sphenoid sinus. NECK: Right common carotid artery: No abnormality noted. No significant stenosis. No dissection or occlusion. Right extracranial internal carotid artery: Mild proximal calcific plaque. No significant stenosis. No dissection or occlusion. Right external carotid artery: No abnormality noted. No occlusion. Right extracranial vertebral artery: No abnormality noted. No significant stenosis. No dissection or occlusion. Left common carotid artery: No abnormality noted. No significant stenosis. No dissection or occlusion. Left extracranial internal carotid artery: Mild proximal calcific plaque noted. No significant stenosis. No dissection or occlusion. Left external carotid artery: No abnormality noted. No occlusion. Left extracranial vertebral artery: No abnormality noted. No significant stenosis. No dissection or occlusion. Thyroid: 9 mm diameter and calcified left thyroid nodule. No further assessment required. Lung apices: No significant abnormality noted. HEAD and NECK: Bones/joints: There is moderate edema in the left posterior frontal parietal lobe lobes. There is mild heterogeneous asymmetric enhancement of the left parietal cortex subjacent to the parietal craniotomy. Soft tissues: No abnormality noted. CAROTID STENOSIS REFERENCE USING NASCET CRITERIA: % ICA stenosis = (1 - narrowest ICA diameter/diameter of distal cervical ICA) x 100. Mild - <50% stenosis. Moderate - 50-69% stenosis. Severe - 70-94% stenosis. Near occlusion - 95-99% stenosis. Occluded - 100% stenosis. IMPRESSION: 1. There is diminished flow in the anterior left M2 branch without occlusion. 2. No large vessel occlusion or dissection in the head or neck. 3. Left posterior frontal parietal vasogenic edema with heterogeneous underlying gyral enhancement. Cerebritis and developing abscess considered. Residual mass if there has been a recent resection is also considered. ACT 112: N/A Electronically signed by Zehra Garcia 04-24-2025 4:32 PM
[2025-04-24 16:47] LABS: Albumin Globulin Ratio 1.8 (0.9-2); Albumin Level 3.7 gm/dl (3.4-5.0); BUN Creatinine Ratio 13.4 (10-20); Bilirubin,Total 0.9 mg/dl (0.2-1.0); Calcium 8.3 mg/dl (8.6-10.3); Creatinine Clr Calc Pharmacy 124.4 ml/min; Globulin 2.1 gm/dl (2.5-4.0); Magnesium 1.7 mg/dl (1.7-2.4); Potassium 3.6 mmol/L (3.5-5.1); Total Protein 5.8 gm/dl (6.0-8.3)
[2025-04-24] MEDS: ASPIRIN 81 MG ECTAB PO STA (16:50)
[2025-04-24 16:53] LABS: Troponin I High Sensitivity 6.6 pg/ml (0-20)
[2025-04-24 17:02] LABS: Partial Thromboplastin Ratio 1.2; Partial Thromboplastin Time 31 Seconds (21-31); Prothrombin Time 10.9 Seconds (9.0-12.0)
[2025-04-24] MEDS: GADOBUTROL 65ML VIAL IV ONE (17:53)
--- NOTE | 2025-04-24 18:04 | XRay Report ---
Chest radiograph, one view History: stroke. Comparison: July 04, 2022. Findings: Calcified atherosclerotic changes of the thoracic aorta. Cardiomediastinal silhouette is within normal limits. Pulmonary vasculature is within normal limits. Lungs are clear. Impression: Stable exam. No acute process. Electronically signed by Casey Rose 04-24-2025 6:04 PM
--- NOTE | 2025-04-24 19:16 | Magnetic Resonance Report ---
Exam: MR brain without and with intravenous contrast. History: Difficulty speaking. Right arm weakness. Comparison: Correlation CTA head and neck and noncontrast head CT earlier same day and comparison to prior MR May 25, 2024. Technique: Routine multiplanar multisequence MR images of the brain without and with intravenous contrast were obtained and reviewed. Findings: Diffusion weighted series demonstrates no restricted diffusion. Brain parenchyma demonstrates postintervention changes of the left parietal lobe with serpiginous elements of increased T1 and susceptibility at the level of the surgical bed. This may represent petechial hemorrhage and or laminar necrosis. No discrete mass effect. Overlying craniotomy changes are noted. Remaining brain parenchyma demonstrates normal signal intensity for patient's age. Normal ventricles and sulci for patient's age. Major vascular flow voids are present. Basal cisterns are patent. Empty sella is noted. This is of unlikely clinical significance. No midline shift. Postcontrast images demonstrate significantly increased poorly defined somewhat serpiginous enhancement of the left parietal lobe at the above-described intervention when compared to prior study. No additional abnormal enhancement is noted. Intraorbital soft tissues are within normal limits. Left parietal craniotomy changes appear to be uncomplicated. Impression: Increased region of serpiginous what appears to be cortical enhancement of the left parietal lobe when compared to prior exam. Elements of petechial hemorrhage at this level not excluded. Associated increased adjacent white matter edema. Findings worrisome for neoplastic disease. Edematous changes may represent a neoplastic infiltrative process. Infectious or inflammatory processes cannot entirely be excluded in the appropriate clinical setting. Please see above for details. Electronically signed by Casey Rose 04-24-2025 7:15 PM
[2025-04-24] MEDS: hydrALAZINE HCL 20 MG/ML VIAL IV STA (19:56)
[2025-04-24] MEDS: dexAMETHasone**PF** 10 MG/ML VIAL IV ONE (20:14)
[2025-04-24] MEDS: levETIRAcetam 500 MG/5 ML VIAL IV STA (20:14)
[2025-04-24] MEDS: SODIUM CHLORIDE 0.9% 1,000 ML IV ONE (21:53)
[2025-04-24] MEDS: MAGNESIUM SULFATE / D5W 1 GM/100 ML BAG IV SCH (21:55)
--- NOTE | 2025-04-24 22:06 | History & Physical Report ---
Date of Service April 24, 2025 Assessment & Plan (1) Hypertensive crisis: Plan: Assessment and plan below following discussion of case with ED provider and reviewing patient history/pertinent normal/abnormal diagnostic test results. Hypertensive crisis Patient currently not on maintenance medications. Multifactorial TIA/strokelike symptoms from possible THREAD LASTER tumor recurrence, hx left parietal glioblastoma status surgery/chemoradiation/NAY, possible ICH (possible petechial hemorrhages on imaging) Possible alcohol withdrawal heterozygous factor V Leiden mutation history of DVT status post Coumadin Acute on chronic hyponatremia, possible SIADH given history of brain tumor, alcohol intake contributory Acute on chronic anemia, current hemoglobin slightly lower than baseline, patient without overt bleed symptoms Hyperglycemia, likely prediabetes, hemoglobin A1c of 6.1 from 2021 past tobacco abuse Admit to PCU Initiate losartan Neurochecks Neurology consultation RE abnormal brain MRI [ED provider already in touch with Dr. Montenegro and diarrhea who recommends Decadron and Keppra Rx. [facility] neurosurgery on-call provider in agreement with plan as per conversation with ED provider (Ms. Radha Anaya PA-C, contact #[phone]). No urgent procedural intervention recommended, follow-up at facility after 1 week as per provider.) MARY S, DT precautions Hyponatremia workup, fluid restriction Anemia workup Update hemoglobin A1c DVT prophylaxis. SCDs re: possible ICH Full code Text document was generated using [employer] voice recognition software. It may contain grammatical or spelling errors. Kindly contact undersigned for clarification of any documentation item in question. History of Present Illness Chief Complaint: Trouble talking, right arm weakness Primary Care Provider: PCP : Dr. Coco Geronimo [facility] neuro-oncologist : Dr. Julisa Sellers [facility] neurosurgeon : Dr. Bari Mcmahon History obtained from patient and records. Medical history significant for hypertension, history left parietal glioblastoma status post craniotomy/resection ([facility] 2021)/chemoradiation status post laser interstitial thermal therapy (NAY) ([facility]) (heterozygous factor V Leiden mutation, history of DVT status post Coumadin, chronic hyponatremia, chronic anemia (baseline hemoglobin 12-13), daily alcohol intake, past tobacco abuse. Last [facility] confinement June 2022 for strokelike symptoms. Patient found to have brain tumor on imaging. Patient transferred to [facility] for further evaluation. Patient found to have left parietal glioblastoma. Patient subsequently surgery followed by chemoradiation Patient noted to have tumor progression/radiographic disease on serial brain MRI imaging last August 2024. Patient subsequently underwent laser interstitial thermal therapy (NAY) at [facility] last September,. Pathology from biopsy revealed benign reactive changes. Serial brain MRIs done post NAY procedure. Last outpatient brain MRI done in [place] (where patient resides few months in a year) last January 2025. Last scan showed great response to NAY as per patient discussion with [facility] neuro-oncologist 3 months ago. Follow-up brain MRI scheduled end of the month. Around noontime today, left-handed patient felt agitated opening the sliding door of his home with his right arm. Right upper extremity weakness/poor control associated with trouble getting words out. Denies headache or leg weakness. Denies chest pain, or SOB. Denies abdominal pain, black/bloody stools, diarrhea, hematuria. Patient brought to ER by friend. Highest SBP of 210s documented at the ER. Symptoms currently resolved. IV Keppra and Decadron administered at the ER. 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 Allergies Allergy/AdvReac Type Severity Reaction Status Date / Time No Known Allergies Allergy Verified 04/24/25 16:21 Home Medications Medication Instructions Recorded Confirmed Type ibuprofen 200 mg tablet 400 mg PO ONCE 04/24/25 04/24/25 History Past Med/Surg History Problem List (Updated 04/25/25 @ 05:29 by Gray Rea MD) Hypertensive crisis Stroke-like symptoms (Acute) Hypertension (Acute) Neurological deficit present (Acute) Brain mass (Acute) Encounter for pre-operative examination Hypertension (Chronic) Medical History Hx of blood clots IN KNEE AREA AND WAS ON THINNER AND NO LONGER NEEDED Hypertension Surgical History (Updated 07/04/22 @ 16:52 by Rosy Garcia PA-C) H/O inguinal hernia repair Hx of colonoscopy Family History (Updated 07/04/22 @ 16:52 by Rosy Garcia PA-C) Mother Cancer lung Kidney disease Father Coronary heart disease Heart disease Hypertension Social History (Updated 07/04/22 @ 17:31 by Rosy Garcia PA-C) Smoking Status: Never smoker Second Hand Exposure: No; Do You Dip or Chew Tobacco: No; Hx Alcohol Use: Yes Alcohol type: beer Hx Substance Use: No Preferred Language: [place] Communication Ability: Effective Fnps Required: No Beliefs That Will Affect Care: None Current Living Situation: Alone Current Living Situation Comment: lives in a ranch home by himself current occupational status: employed Feels Safe at Home: Yes Assistive Devices: Glasses Physical Exam Physical Exam: GENERAL: slightly restless, unkempt, tremulous, no respiratory distress SKIN: Normal color, warm HEENT: [place] palpebral conjunctivae, no ptosis, dry buccal mucosa NECK : Supple, no tenderness CHEST : CTA, no tenderness HEART : RRR, no obvious murmurs ABDOMEN: no distention, nontender EXTREMITIES : No LE swelling/tenderness, palpable pulses, no other conspicuous deformities noted NEUROLOGIC : Coherent, no facial asymmetry, MMTS 4/5, tremulous, no other gross focality Results & Data Results & Data Vital Signs (Past 12 Hours) Vital Signs Temp Pulse Pulse Resp BP BP Pulse Ox 04/24/25 21:00 61 20 159/93 H 96 04/24/25 19:57 64 18 188/112 H 20 L 04/24/25 18:10 58 L 17 192/111 H 98 04/24/25 17:15 61 16 182/104 H 98 04/24/25 17:06 57 L 15 186/101 H 98 04/24/25 17:05 57 L 186/101 H 04/24/25 16:50 63 182/91 H 04/24/25 16:45 62 182/91 H 04/24/25 16:44 62 16 186/116 H 99 04/24/25 16:30 67 213/112 H 04/24/25 16:26 67 14 195/107 H 97 04/24/25 16:22 73 04/24/25 15:53 36.8 C 69 18 127/100 97 O2 Del Method 04/24/25 21:00 Room Air 04/24/25 19:57 04/24/25 18:10 Room Air 04/24/25 17:15 Room Air 04/24/25 17:06 Room Air 04/24/25 17:05 04/24/25 16:50 04/24/25 16:45 04/24/25 16:44 Room Air 04/24/25 16:30 04/24/25 16:26 Room Air 04/24/25 16:22 04/24/25 15:53 Room Air Laboratory Results Laboratory Results WBC 5.63 K/ul (4.8-10.8) 04/24/25 16:12 RBC 3.69 M/uL (4.70-6.10) L 04/24/25 16:12 Hgb 11.7 g/dl (14.0-18.0) L 04/24/25 16:12 Hct 34.1 % (42.0-52.0) L 04/24/25 16:12 MCV 92.4 fL (80.0-100.0) 04/24/25 16:12 MCH 31.7 pg (25.0-34.0) 04/24/25 16:12 MCHC 34.3 g/dL (32.0-36.0) 04/24/25 16:12 RDW Std Deviation 42.1 fL (36.4-46.3) 04/24/25 16:12 RDW Coeff of Kristin 12.3 % (11.5-14.5) 04/24/25 16:12 Plt Count 202 K/uL (130-400) 04/24/25 16:12 MPV 9.5 fL (9.4-12.4) 04/24/25 16:12 Immature Gran % (Auto) 0.4 % 04/24/25 16:12 Neut % (Auto) 73.9 % 04/24/25 16:12 Lymph % (Auto) 14.0 % 04/24/25 16:12 Sullivan % (Auto) 11.0 % 04/24/25 16:12 Eos % (Auto) 0.2 % 04/24/25 16:12 Baso % (Auto) 0.5 % 04/24/25 16:12 Neut # (Auto) 4.16 K/uL (1.40-6.50) 04/24/25 16:12 Lymph # (Auto) 0.79 K/uL (1.20-3.40) L 04/24/25 16:12 Sullivan # (Auto) 0.62 K/uL (0.11-0.59) H 04/24/25 16:12 Eos # (Auto) 0.01 K/uL (0.00-0.50) 04/24/25 16:12 Baso # (Auto) 0.03 K/uL (0.00-0.20) 04/24/25 16:12 Immature Gran # (Auto) 0.02 K/uL (0.01-0.20) 04/24/25 16:12 PT 10.9 Seconds (9.0-12.0) 04/24/25 16:12 INR 1.0 (0.9-1.1) 04/24/25 16:12 APTT 31 Seconds (21-31) 04/24/25 16:12 PTT Ratio 1.2 04/24/25 16:12 Sodium 128 mmol/L (136-145) L 04/24/25 16:12 Potassium 3.6 mmol/L (3.5-5.1) 04/24/25 16:12 Chloride 96 mmol/L (98-107) L 04/24/25 16:12 Carbon Dioxide 24 mmol/L (21-32) 04/24/25 16:12 Anion Gap 8 (3-11) 04/24/25 16:12 BUN 9 mg/dl (6-23) 04/24/25 16:12 Creatinine 0.67 mg/dl (0.6-1.4) 04/24/25 16:12 Est Cr Clr Drug Dosing 124.4 ml/min 04/24/25 16:12 eGFR 102.34 04/24/25 16:12 BUN/Creatinine Ratio 13.4 (10-20) 04/24/25 16:12 Glucose 108 mg/dl (70-99(Fasting)) H 04/24/25 16:12 POC Glucose 118 mg/dl (70-99) H 04/24/25 16:11 Calcium 8.3 mg/dl (8.6-10.3) L 04/24/25 16:12 Magnesium 1.7 mg/dl (1.7-2.4) 04/24/25 16:12 Total Bilirubin 0.9 mg/dl (0.2-1.0) 04/24/25 16:12 AST 14 U/L (13-39) 04/24/25 16:12 ALT 9 U/L (7-52) 04/24/25 16:12 Alkaline Phosphatase 23 U/L (34-104) L 04/24/25 16:12 Troponin I High Sens 6.6 pg/ml (0-20) 04/24/25 16:12 Total Protein 5.8 gm/dl (6.0-8.3) L 04/24/25 16:12 Albumin 3.7 gm/dl (3.4-5.0) 04/24/25 16:12 Globulin 2.1 gm/dl (2.5-4.0) L 04/24/25 16:12 Albumin/Globulin Ratio 1.8 (0.9-2) 04/24/25 16:12 Blood Type AB Positive 04/24/25 16:12 Antibody Screen NEGATIVE 04/24/25 16:12 Impressions Chest X-Ray 04/24/25 15:59 Chest radiograph, one view History: stroke. Comparison: July 04, 2022. Findings: Calcified atherosclerotic changes of the thoracic aorta. Cardiomediastinal silhouette is within normal limits. Pulmonary vasculature is within normal limits. Lungs are clear. Impression: Stable exam. No acute process. Electronically signed by Casey Rose 04-24-2025 6:[address] 04/24/25 15:59 EXAM: CT Head Without Intravenous Contrast INDICATION: Right facial droop. TECHNIQUE: Axial computed tomography images of the head/brain without intravenous contrast. Sagittal and/or coronal reformats are provided. Sagittal and coronal reformatted images were created and reviewed. This CT exam was performed using one or more of the following dose reduction techniques: automated exposure control, adjustment of the mA and/or kV according to patient size, and/or use of iterative reconstruction technique. COMPARISON: MRI 05/25/2024 FINDINGS: Limitations: None. Brain and extra-axial spaces: There is a moderate to large area of left posterior frontal parietal edema. Small foci of postoperative calcification noted in the left posterior parietal lobe. No regional mass effect. No shift. No hemorrhage. Bones/joints: Left parietal craniotomy change. No acute osseous abnormality. Soft tissues: No significant abnormality noted. Vasculature: No acute abnormality noted. Sinuses: Visualized portion of the left maxillary sinus is opacified. Mastoid air cells: No mastoid effusion. Orbits: No significant abnormality noted. IMPRESSION: Left posterior frontal parietal vasogenic edema without regional mass effect, shift or hemorrhage. Correlate with surgical history. ACT 112: N/A Electronically signed by Jose Zehra 04-24-2025 4:25 PM Head CTA 04/24/25 15:59 EXAM: CT Angiography Head and Neck With Intravenous Contrast INDICATION: Right facial droop. TECHNIQUE: [place] [facility] [place]/head and neck CT angiography protocol performed with intravenous contrast. Sagittal and coronal reformatted images were created and reviewed. This CT exam was performed using one or more of the following dose reduction techniques: automated exposure control, adjustment of the mA and/or kV according to patient size, and/or use of iterative reconstruction technique. MIP reconstructed images were created and reviewed. CONTRAST: 119ml of Optiray 320 was administered intravenously. COMPARISON: None. FINDINGS: HEAD: Right anterior cerebral artery: No abnormality noted. No occlusion or significant stenosis. Anterior communicating artery is present. No aneurysm. Right middle cerebral artery: No abnormality noted. No occlusion or significant stenosis. No aneurysm. Right posterior cerebral artery: No abnormality noted. No occlusion or significant stenosis. No aneurysm. Right intracranial internal carotid artery: Mild calcific plaque noted. No significant stenosis. No dissection or occlusion. Right intracranial vertebral artery: No abnormality noted. No significant stenosis. No dissection or occlusion. Left anterior cerebral artery: No abnormality noted. No occlusion or significant stenosis. No aneurysm. Left middle cerebral artery: M1 patent. There is diminished flow in the anterior left M2 branch without occlusion. No aneurysm. Left posterior cerebral artery: No abnormality noted. No occlusion or significant stenosis. No aneurysm. Left intracranial internal carotid artery: Mild calcific plaque noted. No significant stenosis. No dissection or occlusion. Left intracranial vertebral artery: Small focus of calcific plaque noted. No significant stenosis. No dissection or occlusion. Basilar artery: No abnormality noted. No occlusion or significant stenosis. No aneurysm. Other vasculature: No vascular malformation. Sinuses: There is chronic opacification of the left maxillary sinus. There is mild mucosal thickening left sphenoid sinus. NECK: Right common carotid artery: No abnormality noted. No significant stenosis. No dissection or occlusion. Right extracranial internal carotid artery: Mild proximal calcific plaque. No significant stenosis. No dissection or occlusion. Right external carotid artery: No abnormality noted. No occlusion. Right extracranial vertebral artery: No abnormality noted. No significant stenosis. No dissection or occlusion. Left common carotid artery: No abnormality noted. No significant stenosis. No dissection or occlusion. Left extracranial internal carotid artery: Mild proximal calcific plaque noted. No significant stenosis. No dissection or occlusion. Left external carotid artery: No abnormality noted. No occlusion. Left extracranial vertebral artery: No abnormality noted. No significant stenosis. No dissection or occlusion. Thyroid: 9 mm diameter and calcified left thyroid nodule. No further assessment required. Lung apices: No significant abnormality noted. HEAD and NECK: Bones/joints: There is moderate edema in the left posterior frontal parietal lobe lobes. There is mild heterogeneous asymmetric enhancement of the left parietal cortex subjacent to the parietal craniotomy. Soft tissues: No abnormality noted. CAROTID STENOSIS REFERENCE USING NASCET CRITERIA: % ICA stenosis = (1 - narrowest ICA diameter/diameter of distal cervical ICA) x 100. Mild - <50% stenosis. Moderate - 50-69% stenosis. Severe - 70-94% stenosis. Near occlusion - 95-99% stenosis. Occluded - 100% stenosis. IMPRESSION: 1. There is diminished flow in the anterior left M2 branch without occlusion. 2. No large vessel occlusion or dissection in the head or neck. 3. Left posterior frontal parietal vasogenic edema with heterogeneous underlying gyral enhancement. Cerebritis and developing abscess considered. Residual mass if there has been a recent resection is also considered. ACT 112: N/A Electronically signed by Zehra Garcia 04-24-2025 4:32 PM Neck CTA 04/24/25 15:59 EXAM: CT Angiography Head and Neck With Intravenous Contrast INDICATION: Right facial droop. TECHNIQUE: [place] [facility] [place]/head and neck CT angiography protocol performed with intravenous contrast. Sagittal and coronal reformatted images were created and reviewed. This CT exam was performed using one or more of the following dose reduction techniques: automated exposure control, adjustment of the mA and/or kV according to patient size, and/or use of iterative reconstruction technique. MIP reconstructed images were created and reviewed. CONTRAST: 119ml of Optiray 320 was administered intravenously. COMPARISON: None. FINDINGS: HEAD: Right anterior cerebral artery: No abnormality noted. No occlusion or significant stenosis. Anterior communicating artery is present. No aneurysm. Right middle cerebral artery: No abnormality noted. No occlusion or significant stenosis. No aneurysm. Right posterior cerebral artery: No abnormality noted. No occlusion or significant stenosis. No aneurysm. Right intracranial internal carotid artery: Mild calcific plaque noted. No significant stenosis. No dissection or occlusion. Right intracranial vertebral artery: No abnormality noted. No significant stenosis. No dissection or occlusion. Left anterior cerebral artery: No abnormality noted. No occlusion or significant stenosis. No aneurysm. Left middle cerebral artery: M1 patent. There is diminished flow in the anterior left M2 branch without occlusion. No aneurysm. Left posterior cerebral artery: No abnormality noted. No occlusion or significant stenosis. No aneurysm. Left intracranial internal carotid artery: Mild calcific plaque noted. No significant stenosis. No dissection or occlusion. Left intracranial vertebral artery: Small focus of calcific plaque noted. No significant stenosis. No dissection or occlusion. Basilar artery: No abnormality noted. No occlusion or significant stenosis. No aneurysm. Other vasculature: No vascular malformation. Sinuses: There is chronic opacification of the left maxillary sinus. There is mild mucosal thickening left sphenoid sinus. NECK: Right common carotid artery: No abnormality noted. No significant stenosis. No dissection or occlusion. Right extracranial internal carotid artery: Mild proximal calcific plaque. No significant stenosis. No dissection or occlusion. Right external carotid artery: No abnormality noted. No occlusion. Right extracranial vertebral artery: No abnormality noted. No significant stenosis. No dissection or occlusion. Left common carotid artery: No abnormality noted. No significant stenosis. No dissection or occlusion. Left extracranial internal carotid artery: Mild proximal calcific plaque noted. No significant stenosis. No dissection or occlusion. Left external carotid artery: No abnormality noted. No occlusion. Left extracranial vertebral artery: No abnormality noted. No significant stenosis. No dissection or occlusion. Thyroid: 9 mm diameter and calcified left thyroid nodule. No further assessment required. Lung apices: No significant abnormality noted. HEAD and NECK: Bones/joints: There is moderate edema in the left posterior frontal parietal lobe lobes. There is mild heterogeneous asymmetric enhancement of the left parietal cortex subjacent to the parietal craniotomy. Soft tissues: No abnormality noted. CAROTID STENOSIS REFERENCE USING NASCET CRITERIA: % ICA stenosis = (1 - narrowest ICA diameter/diameter of distal cervical ICA) x 100. Mild - <50% stenosis. Moderate - 50-69% stenosis. Severe - 70-94% stenosis. Near occlusion - 95-99% stenosis. Occluded - 100% stenosis. IMPRESSION: 1. There is diminished flow in the anterior left M2 branch without occlusion. 2. No large vessel occlusion or dissection in the head or neck. 3. Left posterior frontal parietal vasogenic edema with heterogeneous underlying gyral enhancement. Cerebritis and developing abscess considered. Residual mass if there has been a recent resection is also considered. ACT 112: N/A Electronically signed by Zehra Garcia 04-24-2025 4:32 PM Brain MRI 04/24/25 17:10 Exam: MR brain without and with intravenous contrast. History: Difficulty speaking. Right arm weakness. Comparison: Correlation CTA head and neck and noncontrast head CT earlier same day and comparison to prior MR May 25, 2024. Technique: Routine multiplanar multisequence MR images of the brain without and with intravenous contrast were obtained and reviewed. Findings: Diffusion weighted series demonstrates no restricted diffusion. Brain parenchyma demonstrates postintervention changes of the left parietal lobe with serpiginous elements of increased T1 and susceptibility at the level of the surgical bed. This may represent petechial hemorrhage and or laminar necrosis. No discrete mass effect. Overlying craniotomy changes are noted. Remaining brain parenchyma demonstrates normal signal intensity for patient's age. Normal ventricles and sulci for patient's age. Major vascular flow voids are present. Basal cisterns are patent. Empty sella is noted. This is of unlikely clinical significance. No midline shift. Postcontrast images demonstrate significantly increased poorly defined somewhat serpiginous enhancement of the left parietal lobe at the above-described intervention when compared to prior study. No additional abnormal enhancement is noted. Intraorbital soft tissues are within normal limits. Left parietal craniotomy changes appear to be uncomplicated. Impression: Increased region of serpiginous what appears to be cortical enhancement of the left parietal lobe when compared to prior exam. Elements of petechial hemorrhage at this level not excluded. Associated increased adjacent white matter edema. Findings worrisome for neoplastic disease. Edematous changes may represent a neoplastic infiltrative process. Infectious or inflammatory processes cannot entirely be excluded in the appropriate clinical setting. Please see above for details. Electronically signed by Casey oRse 04-24-2025 7:15 PM Diagnostic Findings EKG as per my interpretation :Rate 65, NSR, normal axis, no ischemia Code Status & VTE Plan VTE Prophylaxis Plan VTE Prophylaxis will be ordered: Yes
--- NOTE | 2025-04-24 22:16 | Communication Note ---
Date of Service: April 24, 2025 I was called about this patient a 65-year-old male patient with a PMH of glioblastoma status postsurgical resection, currently following with [facility] neurosurgery. The patient presented to the hospital with right arm weakness that was noticed around noon, later in the day the patient noticed some slurred speech when he called his parents. Presents to the emergency room where a stroke alert was called the CTA did not show any large vessel occlusion. MRI of the brain shows what appears to be worsening vasogenic edema at the left parietal lobe with an area of suspicious enhancement cannot exclude evidence of petechial hemorrhages concerning for recurrent neoplastic disease. Recommended. Decadron 10 mg IV. Start Decadron 4 mg orally 3 times daily. Loaded with Keppra 1 g and start Keppra 750 twice daily.. Reach out to his neurosurgeon for further recommendations and management. Consider admitting for observation and clinical monitoring.
[2025-04-24 22:22] LABS: Reticulocyte % 2.06 % (0.50-2.00)
[2025-04-24] MEDS: THIAMINE HCL 100 MG in SYRINGE 9 ML IV STA (22:22)
[2025-04-24] MEDS ORDERED: GABAPENTIN 1200MG ALCOHOL WITHDRAWAL LOAD PO STA (22:54)
[2025-04-24] MEDS ORDERED: Ativan IV Alcohol Withdrawal--Active Protocol IV PRN (22:54)
[2025-04-24] MEDS ORDERED: LORazepam 2 MG/1 ML VIAL IV PRN ×3 (22:54)
[2025-04-24] MEDS ORDERED: oxyCODONE HCL IR 5 MG TAB (IMMEDIATE RELEASE) PO PRN (22:58)
[2025-04-24] MEDS ORDERED: ACETAMINOPHEN 325 MG TAB PO PRN (22:58)
[2025-04-24] MEDS ORDERED: PROMETHAZINE 6.25 MG/50.25 ML BAG IV PRN (22:58)
[2025-04-24] MEDS ORDERED: PHARMACIST DISCHARGE MED REC CONSULT PRN (22:59)
[2025-04-24 23:07] LABS: Thyroid Stimulating Hormone 1.33 uIu/ml (0.300-4.500)
[2025-04-24 23:13] LABS: Ferritin 178.5 ng/ml (8-388)
[2025-04-24 23:18] LABS: Folate (Folic Acid),Ser orPlas > 22.30 ng/ml (>5.38)
[2025-04-24 23:19] LABS: Vitamin B12 336 pg/ml (180-914)
[2025-04-24] MEDS: FOLIC ACID 1 MG TAB PO SCH (23:49)
[2025-04-24] MEDS: MULTIVITAMIN TAB PO SCH (23:49)
[2025-04-24] MEDS: GABAPENTIN 600 MG TAB PO ONE (23:49)
[2025-04-25 01:21] LABS: Appearance Urine Clear (Clear); Bacteria Urine Automated 4+ (None Seen); Bilirubin Urine Negative (Negative); Blood Urine Negative (Negative); Cast Urine Automated 0-2 /lpf (0-2); Color Urine Yellow; Epithelial Cell Urine Auto 0-2 /hpf (0-2); Glucose Urine UA Negative (Negative); Ketones Urine 1+ (Negative); Leukocyte Esterase Urine 2+ (Negative); Nitrite Urine Negative (Negative); Protein Urine Negative (Negative); RBC Urine Automated 0-2 /hpf (0-2); Specific Gravity Urine 1.009 (1.000-1.030); Urobilinogen Urine Negative (Negative); WBC Urine Automated 21-50 /hpf (0-5); pH Urine 6.5 (4.5-7.5)
[2025-04-25] MEDS: cloNIDine HCL 0.1 MG TAB PO ONE (01:44)
[2025-04-25] MEDS: GABAPENTIN 600 MG TAB PO SCH (05:52)
[2025-04-25] MEDS ORDERED: dexAMETHasone 4 MG in SYRINGE 0 ML IV SCH (06:00)
[2025-04-25] MEDS: LOSARTAN POTASSIUM 25 MG TAB PO STA (06:08)
[2025-04-25 06:14] LABS: Amphetamines+Metham, Urine Neg (Neg); Barbiturates, Urine Neg (Neg); Benzodiazepine, Urine Neg (Neg); Cocaine, Urine Neg (Neg); Fentanyl, Urine Neg (Neg); MDMA (Ecstacy), Urine Neg (Neg); Marijuana, Urine Pos (Neg); Methadone, Urine Neg (Neg); Opiate, Urine Neg (Neg); Phencyclidine, Urine Neg (Neg)
[2025-04-25 06:25] LABS: Basophils # (auto) 0.01 K/uL (0.00-0.20); Basophils % (auto) 0.2 %; Hematocrit (blood only) 42.3 % (42.0-52.0); Hemoglobin 14.2 g/dl (14.0-18.0); Immature Granulocytes # (auto) 0.03 K/uL (0.01-0.20); Immature Granulocytes % (auto) 0.7 %; Lymphocytes # (auto) 0.75 K/uL (1.20-3.40); Lymphocytes % (auto) 16.6 %; Mean Corpuscular Hemoglobin 31.5 pg (25.0-34.0); Mean Corpuscular Hgb Conc 33.6 g/dL (32.0-36.0); Mean Corpuscular Volume 93.8 fL (80.0-100.0); Mean Platelet Volume 9.6 fL (9.4-12.4); Monocytes # (auto) 0.12 K/uL (0.11-0.59); Monocytes % (auto) 2.6 %; Neutrophils # (auto) 3.62 K/uL (1.40-6.50); Neutrophils % (auto) 79.9 %; Platelet Count 262 K/uL (130-400); RDW Standard Deviation 41.6 fL (36.4-46.3); Red Blood Count 4.51 M/uL (4.70-6.10); White Blood Count 4.53 K/ul (4.8-10.8)
[2025-04-25 06:47] LABS: BUN Creatinine Ratio 10.5 (10-20); Calcium 9.1 mg/dl (8.6-10.3); Creatinine Clr Calc Pharmacy 109.7 ml/min; Potassium 3.9 mmol/L (3.5-5.1)
[2025-04-25 07:14] LABS: Estimated Average Glucose 120 mg/dl; Hemoglobin A1C 5.8 % (4.5-5.6)
[2025-04-25] MEDS: dexAMETHasone 4 MG TAB PO SCH (08:58)
[2025-04-25] MEDS: THIAMINE HCL 100 MG TAB PO SCH (08:59)
[2025-04-25] MEDS: levETIRAcetam ORAL SOLN 100MG/ML PO SCH (08:59)
[2025-04-25] MEDS ORDERED: LOSARTAN POTASSIUM 25 MG TAB PO SCH (09:00)
[2025-04-25] MEDS ORDERED: levETIRAcetam ORAL SOLN 100MG/ML PO SCH (09:00)
[2025-04-25 12:45] VITALS: BP 162/74; RESP 14; TEMP 98.1; O2SAT 96
[2025-04-25] MEDS ORDERED: STROKE PATIENT DISCHARGE STA (15:14)
--- NOTE | 2025-04-25 15:17 | Discharge Summary ---
Date of Service April 25, 2025 Admission HPI Per Admitting Provider History obtained from patient and records. Medical history significant for hypertension, history left parietal glioblastoma status post craniotomy/resection ([facility] 2021)/chemoradiation status post laser interstitial thermal therapy (NAY) ([facility] (heterozygous factor V Leiden mutation, history of DVT status post Coumadin, chronic hyponatremia, chronic anemia (baseline hemoglobin 12-13), daily alcohol intake, past tobacco abuse. Last [facility] confinement June 2022 for strokelike symptoms. Patient found to have brain tumor on imaging. Patient transferred to [facility] for further evaluation. Patient found to have left parietal glioblastoma. Patient subsequently surgery followed by chemoradiation Patient noted to have tumor progression/radiographic disease on serial brain MRI imaging last August 2024. Patient subsequently underwent laser interstitial thermal therapy (NAY) at [facility] last September,. Pathology from biopsy revealed benign reactive changes. Serial brain MRIs done post NAY procedure. Last outpatient brain MRI done in [place] (where patient resides few months in a year) last January 2025. Last scan showed great response to NAY as per patient discussion with [facility] neuro-oncologist 3 months ago. Follow-up brain MRI scheduled end of the month. Around noontime today, left-handed patient felt agitated opening the sliding door of his home with his right arm. Right upper extremity weakness/poor control associated with trouble getting words out. Denies headache or leg weakness. Denies chest pain, or SOB. Denies abdominal pain, black/bloody stools, diarrhea, hematuria. Patient brought to ER by friend. Highest SBP of 210s documented at the ER. Symptoms currently resolved. IV Keppra and Decadron administered at the ER. 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 Admission Exam Per Admitting Provider GENERAL: slightly restless, unkempt, tremulous, no respiratory distress SKIN: Normal color, warm HEENT: [place] palpebral conjunctivae, no ptosis, dry buccal mucosa NECK : Supple, no tenderness CHEST : CTA, no tenderness HEART : RRR, no obvious murmurs ABDOMEN: no distention, nontender EXTREMITIES : No LE swelling/tenderness, palpable pulses, no other conspicuous deformities noted NEUROLOGIC : Coherent, no facial asymmetry, MMTS 4/5, tremulous, no other gross focality Principal Diagnosis Stroke-like symptoms Hypertensive crisis Hx of glioblastoma Discharge Exam GENERAL: WD/WN slim M in NAD SKIN: Normal color, warm HEENT: [place] palpebral conjunctivae, no ptosis, dry buccal mucosa NECK : Supple, no tenderness CHEST : CTA, no tenderness HEART : RRR, no obvious murmurs ABDOMEN: no distention, nontender EXTREMITIES : No LE swelling/tenderness, moves extremities without difficulty and spontaneously NEUROLOGIC : Coherent, no facial asymmetry, speech fluent, moves extremities spontaneously and w/o difficulty Discharge Data Allergies Allergy/AdvReac Type Severity Reaction Status Date / Time No Known Allergies Allergy Verified 04/24/25 16:21 Consultations 04/24/25 21:34 ED Decision to Admit Stat 04/25/25 00:52 Consult Neurology Routine 04/25/25 14:22 Burn CD for patient Stat Ordered Studies 04/24/25 15:59 CT angio head w con Stat IMPRESSION: 1. There is diminished flow in the anterior left M2 branch without occlusion. 2. No large vessel occlusion or dissection in the head or neck. 3. Left posterior frontal parietal vasogenic edema with heterogeneous underlying gyral enhancement. Cerebritis and developing abscess considered. Residual mass if there has been a recent resection is also considered. CT angio neck with con Stat IMPRESSION: 1. There is diminished flow in the anterior left M2 branch without occlusion. 2. No large vessel occlusion or dissection in the head or neck. 3. Left posterior frontal parietal vasogenic edema with heterogeneous underlying gyral enhancement. Cerebritis and developing abscess considered. Residual mass if there has been a recent resection is also considered. CT head/brain wo con Stat IMPRESSION: Left posterior frontal parietal vasogenic edema without regional mass effect, shift or hemorrhage. Correlate with surgical history. 04/24/25 17:10 MRI Brain [MR brain wo/w con] Stat Impression: Increased region of serpiginous what appears to be cortical enhancement of the left parietal lobe when compared to prior exam. Elements of petechial hemorrhage at this level not excluded. Associated increased adjacent white matter edema. Findings worrisome for neoplastic disease. Edematous changes may represent a neoplastic infiltrative process. Infectious or inflammatory processes cannot entirely be excluded in the appropriate clinical setting. Please see above for details. Hospital Course (1) Hypertensive crisis: Assessment and plan Hypertensive crisis Patient currently not on maintenance medications. Multifactorial TIA/strokelike symptoms from possible [employer] tumor recurrence, hx left parietal glioblastoma status surgery/chemoradiation/NAY, possible ICH (possible petechial hemorrhages on imaging) Possible alcohol withdrawal Initiate losartan Neurochecks Neurology consultation RE abnormal brain MRI [ED provider already in touch with Dr. Montenegro and diarrhea who recommends Decadron and Keppra Rx. [facility] neurosurgery on-call provider in agreement with plan as per conversation with ED provider (Ms. Radha Anaya PA-C, contact #[phone]). No urgent procedural intervention recommended, follow-up at facility after 1 week as per provider.) Pt started on decadron and Keppra Pt currently without any neurological symptoms and pt wishes to be discharged today Pt has appointment scheduled w/ [facility] this - discussed this with the pt and he plans to follow up. CD w/ brain MRI imaging provided for the pt. Will discharge on Decadron, Keppra and also losartan - for hypertension. Discussed w/ the pt to monitor his BP and follow up closely w/ PCP. Pt says he has BP machine at home and already monitors it, will cont. doing that, agreeable to starting losartan. Pt was also advised not to drive. Currently without withdrawal symptoms. Reports drinking beer daily , denies any withdrawal in the past. Says "his life as currently is is perfect, not planning to change anything " Wishes to be discharged home and agrees to take above mentioned medications. heterozygous factor V Leiden mutation history of DVT status post Coumadin Acute on chronic hyponatremia, possible SIADH given history of brain tumor, alcohol intake contributory . Repeat Na 137. Follow up as outpt. Acute on chronic anemia, admission hemoglobin slightly lower than baseline Hgb 11.7, repeat Hgb this AM 14.2. Admission lab probably w/ some dilutional component. Hyperglycemia, likely prediabetes, hemoglobin A1c of 6.1 from 2021, current A1c 5.8% past tobacco abuse Total Time Total Time Spent Total Time Spent (In Minutes): 50 Discharge Plan Discharge Items Patient Disposition: Home - Self-Care Reason For Visit: CVA Discharge Diagnosis: Stroke-like symptoms Hypertensive crisis Hx of glioblastoma Condition on Discharge: Fair Activity: Per Instructions section Non-emergency contact: Primary Care Provider, Surgeon, Specialist and Neurologist Call non-emergency contact if: you have any medication questions and your symptoms worsen Follow-up/Referrals: PCP,NO [Primary Care Provider] - Diet: Heart Healthy Addtl Attending Provider Instructions: Follow up with your primary care doctor, neurologist/ neurosurgeon. It was recommended that you take Dexamethasone 4 mg three times a day, and Keppra 750 twice a day. Follow up with your neurosurgery team on as already scheduled. You will be provided with CD of brain MRI. Monitor your blood pressure at home and take losartan 25 mg daily. It is recommended that you do not drive. Your urine culture is currently pending. Urinanalysis showed some bacteria which may be possible sign of infection. Follow up closely with your primary care doctor and culture results and/or repeat urinanalysis. Pending Studies at Discharge: Yes Studies:: urine culture Stand-Alone Forms: My [facility] [employer], Smoking Cessation Medications and DC Order Prescriptions: New losartan 25 mg Tablet 25 mg PO QAM Qty: 30 0RF dexamethasone 4 mg Tablet 4 mg PO TID 10 Days Qty: 30 0RF folic acid 1 mg Tablet 1 mg PO QAM Qty: 30 0RF thiamine HCl (vitamin B1) 100 mg Tablet 100 mg PO QAM Qty: 30 0RF levetiracetam [Keppra] 750 mg tablet 750 mg PO BID 10 Days Qty: 20 0RF Discontinued ibuprofen 200 mg Tablet 400 mg PO ONCE Discharge Orders: Discharge Order (Routine); Ordered 04/25/25 Ordered By: Lanre Sun Admission Data Admit Date/Time: 04/24/25 21:53 Attending Provider: Lanre Sun Admit Provider: Gray Rea Primary Care Provider: CRISTIN VAZ Other Providers: Gray Rea; Ector Martinez Other Interventions: Discharge Summary Assessment (RN) Last Done: 04/25/25 15:28
[2025-04-25 15:29] VITALS: PULSE 80
[2025-04-25] MEDS ORDERED: GABAPENTIN 600 MG TAB PO SCH (19:00)
[2025-04-26] MEDS ORDERED: LOSARTAN POTASSIUM 25 MG TAB PO SCH (09:00)
[2025-04-26] MEDS ORDERED: GABAPENTIN 600 MG TAB PO SCH (23:00)
--- NOTE | 2025-04-27 15:25 | Electrocardiogram Report ---
Test Reason : Blood Pressure : */* mmHG Vent. Rate : 67 BPM Atrial Rate : 67 BPM P-R Int : 170 ms QRS Dur : 104 ms QT Int : 422 ms P-R-T Axes : 77 57 46 degrees QTcB Int : 445 ms Normal sinus rhythm Normal ECG When compared with ECG of 04-Jul-2022 10:31, Premature ventricular complexes are no longer Present Confirmed by Brad Mckeon ([id number]) on 04/27/2025 3:24:26 PM Referred By: REFERRED SELF Confirmed By: Brad Mckeon
[2025-04-28] MEDS ORDERED: GABAPENTIN 600 MG TAB PO SCH (11:00)
[2025-04-28 14:57] LABS: Marijuana Quant, GCMS Urine 364 ng/mL (<5)
== END 2025-04-25 15:39 | disposition home or self-care (01) | DRG 54 ==
LOC: ED 15:52 → 2S 21:53